=== PATIENT | male | born 1955 | race Caucasian/White ===

== ENCOUNTER 2024-01-04 08:02 | Day surgery (SDC) | payer MEDICARE, SELFPAY ==
[2024-01-04] VITALS (7 sets, daily range): BP systolic 136–152; BP diastolic 64–85; PULSE 69–77; RESP 16–18; TEMP 35.9–36.6; O2SAT 95–98; BMI 34.9
--- NOTE | 2024-01-04 08:16 | HP.PCM_ITS ---
[facility] - General General Date of Admission: 01/04/24 Date of Service: 01/04/24 Chief Complaint: Screening colonoscopy HPI Narrative ORIN MUÑOZ, is a 69 M who presents today for surveillance colonoscopy. He had a colonoscopy proximately 5 to 10 years ago and he did have polyps during that time. He does not have any change in bowel habits. He does not have abdominal pain. He is not having chest pain or shortness of breath. Past medical history is positive for hypercholesterolemia. He does take 81 mg aspirin on daily basis. PENDING SALE TO [facility] Medical History (Updated 01/01/24 @ 10:05 by Stoney Lazo) Wears glasses Arthritis Easy bruising Back pain Injury of back Former smoker Shortness of breath on exertion Glaucoma ELIZABETH (dyspnea on exertion) Essential (primary) hypertension Hypercholesteremia Hx of colonic polyps Home Medications ?Medication ?Instructions ?Recorded ?Last Taken ?Type albuterol sulfate 90 mcg/actuation 2 puff inhalation Q4H PRN 12/05/23 Unknown History aerosol inhaler shortness of breath aspirin 81 mg tablet,delayed 81 mg PO DAILY 12/05/23 Unknown History release (Adult Low Dose Aspirin) ezetimibe 10 mg-rosuvastatin 10 mg 1 tab PO DAILY 12/05/23 Unknown History tablet latanoprost 0.005 % eye drops 1 drp ophthalmic (eye) DAILY 12/05/23 Unknown History losartan 100 mg tablet 100 mg PO DAILY 12/05/23 Unknown History multivitamin 1 tab PO DAILY 12/05/23 Unknown History timolol 0.5 % eye drops 1 drp ophthalmic (eye) BID 12/05/23 Unknown History Allergy/AdvReac Type Severity Reaction Status Date / Time Penicillins Allergy Nausea/Vom/ Verified 01/01/24 09:56 Diarrhea Surgical History (Updated 12/05/23 @ 11:10 by Maryuri Mendez) History of colonoscopy with polypectomy Social History (Updated 12/05/23 @ 11:12 by Maryuri Mendez) household members: spouse current occupational status: employed current occupation: Part-time [employer] Smoking Status: Former smoker Smokeless tobacco user: other alcohol intake: never substance use type: does not use ROS Review of Systems ROS Unobtainable: other Constitutional Constitutional: Denies fatigue, fever(s), poor appetite, weight gain or weight loss ENT HEENT: Denies mouth lesions Cardiovascular Cardiovascular: Denies abdominal bloating, abdominal edema or abdominal pain Respiratory/Chest Respiratory/Chest: Denies change in mental status, change in phlegm color, chest congestion or chest tightness Gastrointestinal Gastrointestinal: Denies belching, bloating, change in bowel habits, change in stool character, chewing difficulty, coffee ground emesis, constipation, cramping, diarrhea, dyspepsia, dysphagia, early satiety, excessive flatus, fecal incontinence, heartburn, hematemesis, hematochezia, hemorrhoids, loose stools, melena, nausea, odynophagia, rectal bleeding, tenesmus, vomiting or weight changes Genitourinary Genitourinary: Denies abdominal discomfort, burning urination or itching Musculoskeletal Musculoskeletal: Reports as per HPI; Denies muscle weakness or myalgias Integumentary Integumentary: Denies jaundice Neurologic Neurologic: Denies lack of coordination or weakness Psychiatric Psychiatric: Denies confusion, depression, memory loss, mood swings, paranoia or suicidal ideation Endocrine Endocrinology: Denies systems reviewed and no addt'l complaints, except as documented Hematologic/Lymphatic Hematologic/Lymphatic: Denies anemia, easy bleeding, easy bruising or lymphadenopathy Allergic/Immunologic Allergic/Immunologic: Denies systems reviewed and no addt'l complaints, except as documented Physical Exam Const alert General Appearance: cooperative Orientation / Consciousness: oriented to person HEENT hearing grossly normal bilaterally Head and Scalp: normal to inspection Face and Sinus: face symmetric Nose: external nose normal Mouth: oral and palatal mucosa normal Eyes conjunctivae normal General Eye: normal appearance of both eyes Neck full ROM General: normal visual inspection Lymph Lymphatic: no lymphadenopathy noted Chest inspection of chest normal and palpation of chest normal Chest: symmetrical chest wall rise Resp normal respiratory effort Effort and Inspection: able to speak in complete sentences Cardio regular rate GI non-distended Percussion: normal to percussion Rectal Exam: deferred Neuro Speech: speech normal Gait (Neuro): normal gait Assessment & Plan Assessment/Plan (1) Encounter for screening for malignant neoplasm of colon: PLAN: He was explained alternatives, risk, benefits including not withstanding bleeding, infection, sepsis, perforation, need for emergent surgery and . He will have an ASA of 3.
[2024-01-04] MEDS: Lactated Ringers 1,000 ML 15 ML IV (08:28)
--- NOTE | 2024-01-04 08:40 | PCM.PRE.AN2 ---
ASA Classification* ASA Classification ASA Classification: 2 Assessment & Plan Anesthesia* Anesthesia Assessment Anesthesia Assessment: Discussed sedation and/or anesthesia options, risks, benefits, and alternatives with patient/parents/legal guardian/POA. Questions invited. The patient/parents/legal guardian/POA seems to understand and agrees to proceed with anesthesia plan. Reviewed the physical assessment, medical history, allergy history and patient home medications list prior to surgery/procedure/anesthetic and documented any changes. Performed airway and anesthesia risk assessments. 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 When Was Last Pacemaker Check QUESTION #4 FULL TEXT: You/Your Family Experience fever (hyperthermia) with Anesthesia Last Oral Intake Last Oral intake: Last Oral Intake NPO since Meds taken in AM with sips of No 01/04/24 08:30 water? Meds patient instructed to take am of surgery PONV PONV - web ui software engineer: PONV - web ui software engineer Female No 01/01/24 10:06 HX of Motion Sickness No 01/01/24 10:06 HX of N/V After Surgery No 01/01/24 10:06 Non-Smoker No 01/01/24 10:06 Duration of Surgery greater No 01/01/24 10:06 than 60 minutes Number of Risk Factors PONV Score Height & Weight Height & Weight: Anesthesia: Height & Weight Height 5 ft 6 in 01/04/24 08:30 Weight: 98.339 kg 01/04/24 08:30 Body Mass Index (BMI) 34.9 01/04/24 08:30 Respiratory Assessment Respiratory Assessment - web ui software engineer: Respiratory Tract Infection Hx - web ui software engineer Hx Respiratory Tract Infection No 01/01/24 10:06 STOP Sleep Apnea STOP Sleep Apnea - web ui software engineer: STOP Sleep Apnea - web ui software engineer Hx Hypertension Yes 01/01/24 10:06 Hx Sleep Apnea No 01/01/24 10:06 CPAP BIPAP Do you snore loudly (louder Yes 01/01/24 10:06 than talking or can be heard Do you often feel tired/ Yes 01/01/24 10:06 fatigued/ sleepy during daytime? Has anyone observed you stop Yes 01/01/24 10:06 breathing during sleep? STOP Results Positive 01/01/24 10:06 QUESTION #5 FULL TEXT : Do you snore loudly (louder than talking or can be heard through closed doors)? Tobacco Use History Tobacco Use History - web ui software engineer: Tobacco Use History - web ui software engineer Tobacco Use Smoking Status Former smoker 01/01/24 10:06 Hx Tobacco Use No 01/01/24 10:06 Years Smoking 3 01/01/24 10:06 Packs Smoked per Day Smoking Cessation Date was No - quit smoking greater 01/01/24 10:06 within the last 15 years than 15 years ago Hx Smoking Cessation Date Hx Smoking Cessation Counseling Hematologic Medial History Hematologic Hx - web ui software engineer: Hematologic Medical Hx - eyeletter Hx of Blood Transfusion No 01/01/24 10:06 Hx of Transfusion in last 3 No 01/01/24 10:06 Months Date of Last Transfusion (if within last 3 months) Ever experience any problems No 01/01/24 10:06 with transfusion(s)? Specify any problems Hx of Preganancy in last 3 N/A 01/01/24 10:06 Months Nurse Filling Out Transfusion LILA 01/01/24 10:06 & Questions: Date: 01/01/24 01/01/24 10:06 Time: 10:09 01/01/24 10:06 Patient unable to answer at this time (ie. confused, unrespo /Reproduction History /Reproductive History - web ui software engineer: /Reproductive Hx- web ui software engineer Hx Now No 01/01/24 10:06 Gestational Age (in weeks): EDC: Hx Hx Para Hx Section SAB No 01/01/24 10:06 Active Medications Active Medications: Current Medications Generic Name Dose Route Start Last Admin Trade Name Armida PRN Reason Stop Dose Admin Lactated Ringer's 1,000 mls @ 15 mls/hr 01/04/24 08:30 01/04/24 08:28 IV 15 mls/hr .Q48H RICHIE Administration PFSH Medical History Wears glasses Arthritis Easy bruising Back pain Injury of back Former smoker Shortness of breath on exertion Glaucoma ELIZABETH (dyspnea on exertion) Essential (primary) hypertension Hypercholesteremia Hx of colonic polyps Home Medications ?Medication ?Instructions ?Recorded ?Last Taken ?Type albuterol sulfate 90 mcg/actuation 2 puff inhalation Q4H PRN 12/05/23 Unknown History aerosol inhaler shortness of breath aspirin 81 mg tablet,delayed 81 mg PO DAILY 12/05/23 Unknown History release (Adult Low Dose Aspirin) ezetimibe 10 mg-rosuvastatin 10 mg 1 tab PO DAILY 12/05/23 Unknown History tablet latanoprost 0.005 % eye drops 1 drp ophthalmic (eye) DAILY 12/05/23 Unknown History losartan 100 mg tablet 100 mg PO DAILY 12/05/23 Unknown History multivitamin 1 tab PO DAILY 12/05/23 Unknown History timolol 0.5 % eye drops 1 drp ophthalmic (eye) BID 12/05/23 Unknown History Allergy/AdvReac Type Severity Reaction Status Date / Time Penicillins Allergy Nausea/Vom/ Verified 01/01/24 09:56 Diarrhea Surgical History History of colonoscopy with polypectomy Social History household members: spouse current occupational status: employed current occupation: Part-time [employer] Smoking Status: Former smoker Smokeless tobacco user: other alcohol intake: never substance use type: does not use Review of Systems (Anesthesia) ROS Narrative System reviewed and no additional complaints, except as documented.
--- NOTE | 2024-01-04 09:30 | COLBX_PTH ---
PATIENT: ORIN MUÑOZ LOC: EN U#:[id number] AGE/SX: 69/M ROOM: RE01/04/[address]: Dr. Adams Barclay DO : 1955 BED: DIS: 01/04/2024 SPEC #: [id number] RECD: 01/04/24 12:33 STATUS: RADHA KSENIA #: [id number] NED: 01/04/24 09:[address]: Adams Barclay DEPT: SURGICAL PATHOLOGY RECD BY: Catherine Laughlin ENTERED: 01/04/24 13:17 SP TYPE: COLON BX OTHR DR: Dr. Jean Roberto DO Tissues: A - Cecum, NOS B - Ileum, NOS C - COLON BIOPSY Procedures: Surgery Specimen Level IV HEADER OPERATION: Colonoscopy with biopsy PRE-OP DIAGNOSIS: Encounter for screening for malignant neoplasm of colon TISSUE SUBMITTED: A- Cecal ulcer biopsy, B- Terminal ileum biopsy, C- Random biopsy MICROSCOPIC DIAGNOSIS A. Cecal ulcer, biopsy: Fragments of colonic mucosa with focal ulceration, acute and chronic inflammation and granulation tissue reaction. See comment. B. Terminal ileum, biopsy: Fragments of small intestinal mucosa, no pathologic diagnosis. C. Colon, random biopsy: Fragments of colonic mucosa, no pathologic diagnosis. LEN/ 01/05/2024 COMMENT A. Focal glandular distortion is noted. Correlation with clinical, endoscopic findings and appropriate follow-up are necessary. Case has been reviewed in consultation with Dr. Young who concurs with the above diagnosis. IDC:AM MICROSCOPIC DESCRIPTION Slides are reviewed. GROSS DESCRIPTION A. Received in fixative is one container labeled with the patient's name and designated Cecal ulcer biopsy. The specimen consists of multiple irregular fragments of light escoto soft tissue that in aggregate measure 1.2 x 0.3 x 0.1 cm. The specimen is totally submitted in one cassette. B. Received in fixative is one container labeled with the patient's name and designated Terminal ileum biopsy. The specimen consists of two irregular fragments of light escoto soft tissue that in aggregate measure 0.6 x 0.3 x 0.1 cm. The specimen is totally submitted in one cassette. C. Received in fixative is one container labeled with the patient's name and designated Random colon biopsy. The specimen consists of multiple irregular fragments of light escoto soft tissue that in aggregate measure 1.5 x 0.5 x 0.1 cm. The specimen is totally submitted in one cassette. SJ/mr 01/04/2024 TC:2 CPT:21674g5
--- NOTE | 2024-01-04 09:50 | OP.CCLET_ITS ---
01/04/2024 Jean Roberto Re : Colonoscopy procedure for Viktor Bostonabelardo Roberto This procedure was performed on January. My impressions and recommendations are as follows: Impressions : - Diverticulosis in the recto-sigmoid colon, in the sigmoid colon and in the descending colon. - A single (solitary) ulcer in the cecum. Biopsied. - Mild inflammation was found in the ileum secondary to ileitis. Biopsied. - Stricture in the terminal ileum. Recommendations : - Discharge patient to home. - Resume previous diet. - Continue present medications. - Await pathology results. - Repeat colonoscopy in 5 years for surveillance. My findings are described in the full procedure note, which is enclosed. If I can be of further assistance, please feel free to contact me at . Sincerely, Adams Barclay, 01/04/2024 9:49:57 AM This report has been signed electronically.
--- NOTE | 2024-01-04 09:50 | OP.COLON_ITS ---
Patient Name: Vikotr Trujillo Procedure Date: 01/04/2024 9:16 AM Date of : 1955 Age: 69 Procedure: Colonoscopy Indications: Screening for colorectal malignant neoplasm Providers: DO Rita López MD: Jean Roberto Medicines: Monitored Anesthesia Care Patient Profile: This is a 69 year old male. Refer to note in patient chart for documentation of history and physical. Last Colonoscopy: several years ago. Complications: No immediate complications. Procedure: Pre-Anesthesia Assessment: - Prior to the procedure, a History and Physical was performed, and patient medications and allergies were reviewed. The patient is competent. The risks and benefits of the procedure and the sedation options and risks were discussed with the patient. All questions were answered and informed consent was obtained. Patient identification and proposed procedure were verified by the physician in the pre-procedure area. Mental Status Examination: alert and oriented. Airway Examination: normal oropharyngeal airway and neck mobility. Prophylactic Antibiotics: The patient does not require prophylactic antibiotics. Prior Anticoagulants: The patient has taken no anticoagulant or antiplatelet agents. ASA Grade Assessment: II - A patient with mild systemic disease. After reviewing the risks and benefits, the patient was deemed in satisfactory condition to undergo the procedure. The anesthesia plan was to use monitored anesthesia care (MAC). Immediately prior to administration of medications, the patient was re-assessed for adequacy to receive sedatives. The heart rate, respiratory rate, oxygen saturations, blood pressure, adequacy of pulmonary ventilation, and response to care were monitored throughout the procedure. The physical status of the patient was re-assessed after the procedure. After I obtained informed consent, the scope was passed under direct vision. Throughout the procedure, the patient's blood pressure, pulse, and oxygen saturations were monitored continuously. The Colonoscope was introduced through the anus and advanced to the terminal ileum. The colonoscopy was performed without difficulty. The patient tolerated the procedure well. The quality of the bowel preparation was good. The terminal ileum, ileocecal valve, appendiceal orifice, and rectum were photographed. Scope In: 9:29:56 AM Scope Withdrawal Time 0 hours 11 minutes 17 seconds Scope Out: 9:44:14 AM Total Procedure Duration Time 0 hours 14 minutes 18 seconds Findings: The perianal and digital rectal examinations were normal. Multiple small and large-mouthed diverticula were found in the recto-sigmoid colon, sigmoid colon and descending colon. A single (solitary) seven mm ulcer was found in the cecum. No bleeding was present. No stigmata of recent bleeding were seen. Biopsies were taken with a cold forceps for histology. Verification of patient identification for the specimen was done. Estimated blood loss was minimal. Patchy mild inflammation characterized by erosions and erythema was found in the terminal ileum. Biopsies were taken with a cold forceps for histology. Verification of patient identification for the specimen was done. Estimated blood loss was minimal. The terminal ileum contained a benign-appearing, intrinsic moderate stenosis that was non-traversed. Impression: - Diverticulosis in the recto-sigmoid colon, in the sigmoid colon and in the descending colon. - A single (solitary) ulcer in the cecum. Biopsied. - Mild inflammation was found in the ileum secondary to ileitis. Biopsied. - Stricture in the terminal ileum. Recommendation: - Discharge patient to home. - Resume previous diet. - Continue present medications. - Await pathology results. - Repeat colonoscopy in 5 years for surveillance. Procedure Code(s): --- Professional --- 67143, Colonoscopy, flexible; with biopsy, single or multiple CPT copyright 2021 [employer]. All rights reserved. The codes documented in this report are preliminary and upon tile picker review may be revised to meet current compliance requirements. Adams Barclay DO 01/04/2024 9:49:57 AM This report has been signed electronically. Number of Addenda: 0 Note Initiated On: 01/04/2024 9:16 AM
--- NOTE | 2024-01-04 09:55 | PCM.POST.ANE ---
Anesthesia: Postop Eval I Current Vital Signs Temperature: 97 F Pulse Rate: 72 Blood Pressure: 136/73 Respiratory Rate: 16 Pulse Ox: 97 Oxygen Delivery Method: Room Air Assessment Airway patent: Yes Spontaneous unlabored respirations: Yes Mental status: Awake and Calm nausea: No Vomiting: No Anesthesia Complication: No Fluid Hydration Crystalloid volume administer (ml): 600 Total IV fluid infused: 600 Progress Note Anesthesia document: Postop Eval 1 completed: Yes
--- NOTE | 2024-01-04 10:13 | PCM.POSTANE2 ---
Anesthesia Postop Eval I Sum Postop Eval Completion status Anesthesia document: Postop Eval 1 completed: Yes Anesthesia Postop Eval I Summary Anesthesia Postop Eval I Summary: Anesthesia Postop Eval I: Assessment Summary Airway patent Yes 01/04/24 09:56 [email or web address] Spontaneous unlabored Yes 01/04/24 09:56 [email or web address] respirations Mental status Awake,Calm 01/04/24 09:56 [email or web address] nausea No 01/04/24 09:56 [email or web address] Vomiting No 01/04/24 09:56 [email or web address] Anesthesia Postop Eval I: Fluid Summary Crystalloid volume administer 600 01/04/24 09:56 [email or web address] (ml) Colloids volume administered ( ml) Blood Product volume administered (ml) Total IV fluid infused 600 01/04/24 09:56 [email or web address] Anesthesia Postop Eval I: Summary Notes Anesthesia Complication No 01/04/24 09:56 [email or web address] Anesthesia Complication Comment: Post-operative progress note Anesthesia: Postop Eval II Evaluation Mental status: Awake Pain Level: 0 nausea: No Vomiting: No
== END 2024-01-04 10:38 | disposition home or self-care (01) ==
LOC: EN 08:04 → AC 08:06
PROVIDERS: PCP Family Medicine; Referring Provider Family Medicine; Visit Provider Internal Medicine Gastroenterology
PROC: 0DJD8ZZ Inspection of Lower Intestinal Tract, Via Natural or Artificial Opening Endoscopic (ICD-10-PCS; CPT 45378; principal; 2024-01-04 09:25)
DX: Z12.11 Encounter for screening for malignant neoplasm of colon (principal); K56.699 Other intestinal obstruction unspecified as to partial versus complete obstruction; E78.00 Pure hypercholesterolemia, unspecified; K63.89 Other specified diseases of intestine; I10 Essential (primary) hypertension; K57.30 Diverticulosis of large intestine without perforation or abscess without bleeding; K63.3 Ulcer of intestine; Z79.51 Long term (current) use of inhaled steroids; Z79.82 Long term (current) use of aspirin; Z79.899 Other long term (current) drug therapy; Z87.891 Personal history of nicotine dependence
CPT/HCPCS: 45380; 88305; J7120; J2405

== ENCOUNTER → 2024-01-11 | Outpatient (CLI) | payer MEDICARE, SELFPAY ==
[2024-01-11 09:05] LABS: CRP < 2.90 mg/L (0.0-3.0)
[2024-01-11 09:12] LABS: Erythrocyte Sedimentation Rate 5 mm/hr (0-20)
[2024-01-13 10:42] LABS: Anti-Centromere B Ab <0.2 AI (0.0-0.9); Anti-Chromatin <0.2 AI (0.0-0.9); Anti-Jo <0.2 AI (0.0-0.9); Anti-Scleroderma-70 AB <0.2 AI (0.0-0.9); Anti-dsDNA Ab <1 IU/mL (0-9); SJOGREN'S Anti-SS-A test < 0.2 AI (0.0-0.9); SJOGREN'S Anti-SS-B test 0.2 AI (0.0-0.9); Smith Ab <0.2 AI (0.0-0.9)
[2024-01-16 12:00] LABS: ACCA 18 units (0-90); ALCA 38 units (0-60); AMCA 39 units (0-100); Cytoplasmic Ab (C-ANCA) <1:20 titer (Neg:<1:20); Perinuclear Ab (P-ANCA) <1:20 titer (Neg:<1:20); gASCA 15 units (0-50)
== END | disposition home or self-care (01) ==
LOC: LAB 08:09
PROVIDERS: PCP Family Medicine; Referring Provider Internal Medicine Gastroenterology; Visit Provider Internal Medicine Gastroenterology
DX: K52.9 Noninfective gastroenteritis and colitis, unspecified (principal)
CPT/HCPCS: 36415; 83516; 85652; 86036; 86140; 86225; 86235; 86256; 86671